=== PATIENT | female | born 1965 | race Caucasian/White ===

== ENCOUNTER → 2016-06-06 | Outpatient (CLI) | payer SELFPAY ==
[2016-06-06 14:10] VITALS: BP 131/64; PULSE 104; RESP 16; TEMP 98.4; BMI 33.0
--- NOTE | 2016-06-06 16:33 | P.HPBAR ---
Bariatric H&P - History & Physicial H&P Date: 06/06/16 History & Physicial: Visit/CC: band fill Patient initial contact: Initial weight: 102.965 kg Initial weight in pounds: 227.00 Height: 5 ft 7.5 in Initial BMI: 35.0 Last weight: Current weight: 97.324 kg Current weight in pounds: 214.00 Current BMI: 33.0 [place] body weight (based on NIH guidelines): 62.369 kg Excess body weight loss: 14.5% The patient is a 50 year-old F who presents for Bariatric Assessment. Patient is requesting a lap band fill. She currently feels hungry. Past Medical History Past Medical History: Diabetes Mellitus, GERD/Reflux, Hypertension History of Any Multi-Drug Resistant Organisms: None Reported Past Surgical History: Bariatric Surgery, Section, Cholecystectomy, Tubal Ligation Additional Past Surgical History / Comment(s): lap band in 2006 Additional Past Anesthesia/Blood Transfusion Reaction / Comm: difficulty waking from anesthesia Past Psychological History: No Psychological Hx Reported Smoking Status: Never smoker Past Alcohol Use History: Rare Past Drug Use History: None Reported - Past Family History Father Family Medical History: Coronary Artery Disease (CAD) Additional Family Medical History / Comment(s): multiple heart bypasses Mother Family Medical History: CVA/TIA, Diabetes Mellitus Surgical - Exam Vital Signs Temp Pulse Resp BP 98.4 F 104 H 16 131/64 06/06/16 14:07 06/06/16 14:07 06/06/16 14:07 06/06/16 14:07 - General well developed, no distress - Eyes PERRL - ENT normal pinna - Neck no masses - Cardiovascular Rhythm: regular - Abdomen Abdomen: soft, non tender Bariatric Assessment & Plan Plan: The patient LAP-BAND was adjusted. She had 2.5 mL added to her LAP-BAND. She currently has 5.5 mL in the band. She's ill drink water without difficulty. She'll follow-up in 2 weeks. Bariatric Checklist Checklist: Plan: Checklist: EGD: 1. Hiatal hernia: 2. H. Pylori: HgbA1c: Vitamin D: Smoking: Never smoker Primary care physician referral: Psychiatry clearance: Cardiology clearance: Sleep study: Diet journal: VTE risk score: VTE risk level: Rehab needs at discharge:
== END | disposition home or self-care (01) ==
LOC: BARWHC3 13:00
PROVIDERS: ATTEND Surgery
DX: Z48.815 Encounter for surgical aftercare following surgery on the digestive system (principal); Z68.33 Body mass index [BMI] 33.0-33.9, adult; Z98.84 Bariatric surgery status
CPT/HCPCS: 99212

== ENCOUNTER → 2017-05-08 | Outpatient (CLI) | payer SELFPAY ==
[2017-05-08 13:28] VITALS: BP 137/73; PULSE 102; RESP 16; TEMP 98.6; BMI 29.5
--- NOTE | 2017-05-08 16:38 | P.HPBAR ---
Bariatric H&P - History & Physicial H&P Date: 05/08/17 History & Physicial: Visit/CC: band adj Patient initial contact: Initial weight: 102.058 kg Initial weight in pounds: 225.00 Height: 5 ft 7.5 in Initial BMI: 34.7 Last weight: Current weight: 86.636 kg Current weight in pounds: 191.00 Current BMI: 29.5 [place] body weight (based on NIH guidelines): 62.369 kg Excess body weight loss: 38.8% The patient is a 51 year-old F who presents for Bariatric Assessment. The patient presents today for lab band follow. She's had trouble with an night cough. She is requesting fluid to be removed. Past Medical History Past Medical History: Diabetes Mellitus, GERD/Reflux, Hypertension History of Any Multi-Drug Resistant Organisms: None Reported Past Surgical History: Bariatric Surgery, Section, Cholecystectomy, Tubal Ligation Additional Past Surgical History / Comment(s): lap band in 2006 Additional Past Anesthesia/Blood Transfusion Reaction / Comm: difficulty waking from anesthesia Past Psychological History: No Psychological Hx Reported Smoking Status: Never smoker Past Alcohol Use History: Rare Past Drug Use History: None Reported - Past Family History Father Family Medical History: Coronary Artery Disease (CAD) Additional Family Medical History / Comment(s): multiple heart bypasses Mother Family Medical History: CVA/TIA, Diabetes Mellitus Surgical - Exam Vital Signs Temp Pulse Resp BP 98.6 F 102 H 16 137/73 05/08/17 13:25 05/08/17 13:25 05/08/17 13:25 05/08/17 13:25 - General well developed, well nourished, no distress - Eyes PERRL - Abdomen Abdomen: soft, non tender Bariatric Assessment & Plan Plan: LAP-BAND was empty. 6 mL remove her band. She'll follow-up in 4 weeks. Bariatric Checklist Checklist: Plan: Checklist: EGD: 1. Hiatal hernia: 2. H. Pylori: HgbA1c: Vitamin D: Smoking: Never smoker Primary care physician referral: dora Psychiatry clearance: Cardiology clearance: Sleep study: Diet journal: VTE risk score: VTE risk level: Rehab needs at discharge:
== END | disposition home or self-care (01) ==
LOC: BARWHC3 12:37
PROVIDERS: ATTEND Surgery
DX: Z48.815 Encounter for surgical aftercare following surgery on the digestive system (principal); Z68.29 Body mass index [BMI] 29.0-29.9, adult; Z98.84 Bariatric surgery status
CPT/HCPCS: 99212

== ENCOUNTER → 2018-01-22 | Outpatient (CLI) | payer OTHER ==
--- NOTE | 2018-01-22 15:33 | P.HPBAR ---
Bariatric H&P - History & Physicial H&P Date: 01/22/18 History & Physicial: Visit/CC: Patient initial contact: Initial weight: 102.058 kg Initial weight in pounds: Height: Initial BMI: Last weight: Current weight: Current weight in pounds: Current BMI: [place] body weight (based on NIH guidelines): Excess body weight loss: The patient is a 52 year-old F who presents for Bariatric Assessment. Patient presents for lap band follow up. She's not been seen in several years. She had a hysterectomy performed several months ago. She's had some weight gain. She is requesting a fill of her band. Past Medical History Past Medical History: Diabetes Mellitus, GERD/Reflux, Hypertension History of Any Multi-Drug Resistant Organisms: None Reported Past Surgical History: Bariatric Surgery, Section, Cholecystectomy, Tubal Ligation Additional Past Surgical History / Comment(s): lap band in 2006 Additional Past Anesthesia/Blood Transfusion Reaction / Comm: difficulty waking from anesthesia Past Psychological History: No Psychological Hx Reported Smoking Status: Never smoker Past Alcohol Use History: Rare Past Drug Use History: None Reported - Past Family History Father Family Medical History: Coronary Artery Disease (CAD) Additional Family Medical History / Comment(s): multiple heart bypasses Mother Family Medical History: CVA/TIA, Diabetes Mellitus Surgical - Exam - General well developed - Eyes PERRL - ENT normal pinna - Neck no masses - Respiratory normal expansion - Cardiovascular Rhythm: regular - Abdomen Abdomen: soft, non tender Bariatric Assessment & Plan Plan: The patient's lap band was adjusted. She had 4 mL added to her band. She will follow-up in 4 weeks. Bariatric Checklist Checklist: Plan: Checklist: EGD: 1. Hiatal hernia: 2. H. Pylori: HgbA1c: Vitamin D: Smoking: Never smoker Primary care physician referral: [email or web address] Psychiatry clearance: Cardiology clearance: Sleep study: Diet journal: VTE risk score: VTE risk level: Rehab needs at discharge:
[2018-01-22 15:41] VITALS: BP 136/79; PULSE 114; TEMP 98.1; BMI 31.1
== END | disposition home or self-care (01) ==
LOC: BARWHC3 12:47
PROVIDERS: ATTEND Surgery
DX: Z46.51 Encounter for fitting and adjustment of gastric lap band (principal); Z98.84 Bariatric surgery status
CPT/HCPCS: 99212

== ENCOUNTER → 2018-02-12 | Outpatient (CLI) | payer OTHER ==
[2018-02-12 14:29] VITALS: RESP 16; BMI 31.1
--- NOTE | 2018-02-12 15:44 | P.HPBAR ---
Bariatric H&P - History & Physicial H&P Date: 02/12/18 History & Physicial: Visit/CC: band adj Patient initial contact: Initial weight: 102.058 kg Initial weight in pounds: 225.00 Height: 5 ft 7.5 in Initial BMI: 34.7 Last weight: Current weight: 91.427 kg Current weight in pounds: 201.56 Current BMI: 31.1 [place] body weight (based on NIH guidelines): 62.369 kg Excess body weight loss: 26.7% The patient is a 52 year-old F who presents for Bariatric Assessment. Patient presents today for lab band follow. She is requesting a fill of her band. She currently feels hungry. Past Medical History Past Medical History: Diabetes Mellitus, GERD/Reflux, Hypertension History of Any Multi-Drug Resistant Organisms: None Reported Past Surgical History: Bariatric Surgery, Section, Cholecystectomy, Hysterectomy, Tubal Ligation Additional Past Surgical History / Comment(s): lap band in 2006, hysterectomy 2018 Additional Past Anesthesia/Blood Transfusion Reaction / Comm: difficulty waking from anesthesia Past Psychological History: No Psychological Hx Reported Smoking Status: Never smoker Past Alcohol Use History: Rare Past Drug Use History: None Reported - Past Family History Father Family Medical History: Coronary Artery Disease (CAD) Additional Family Medical History / Comment(s): multiple heart bypasses Mother Family Medical History: CVA/TIA, Diabetes Mellitus Surgical - Exam Vital Signs Resp 16 02/12/18 14:26 - General well developed, well nourished, no distress - Eyes PERRL - ENT normal pinna - Respiratory normal expansion - Cardiovascular Rhythm: regular - Abdomen Abdomen: soft, non tender Bariatric Assessment & Plan Plan: The patient's lap band was adjusted. She had 1.5 mL added to her band. She currently has I cc in her band. She'll follow-up in 4 weeks. Bariatric Checklist Checklist: Plan: Checklist: EGD: 1. Hiatal hernia: 2. H. Pylori: HgbA1c: Vitamin D: Smoking: Never smoker Primary care physician referral: Dr. Karla Wang ([place]) Psychiatry clearance: Cardiology clearance: Sleep study: Diet journal: VTE risk score: VTE risk level: Rehab needs at discharge:
== END ==
LOC: BARWHC3 13:15
PROVIDERS: ATTEND Surgery
DX: Z48.815 Encounter for surgical aftercare following surgery on the digestive system (principal); Z98.84 Bariatric surgery status; Z90.49 Acquired absence of other specified parts of digestive tract; Z90.710 Acquired absence of both cervix and uterus
CPT/HCPCS: 99212